=== PATIENT | male | born 1985 | race Caucasian/White ===

== ENCOUNTER 2016-08-27 23:33 | Emergency (ER) | payer OTHER ==
[~2016-08-27] VITALS: Ht 167.6 cm; Wt 77.1 kg
[~2016-08-27 23:33] MED LIST: AMOXICILLIN500 MG PO; ANAPROX DS550 MG PO; CLARITIN10 MG PO; COMPAZINE10 MG PO; PHENERGAN25 M1 PO; TRAMADOL HCL50 MG PO; ZITHROMAX Z PA250 MG PO
== END 2016-08-28 00:47 | disposition home or self-care (01) ==
LOC: ED 23:33
DX: S81.812A Laceration without foreign body, left lower leg, initial encounter (principal); Z23 Encounter for immunization; F17.200 Nicotine dependence, unspecified, uncomplicated; W45.8XXA Other foreign body or object entering through skin, initial encounter; Y93.89 Activity, other specified; Y92.9 Unspecified place or not applicable; Y99.9 Unspecified external cause status

== ENCOUNTER 2016-09-11 07:49 | Emergency (ER) | payer OTHER ==
[~2016-09-11] VITALS: Ht 167.6 cm; Wt 79.4 kg
== END 2016-09-11 08:26 | disposition home or self-care (01) ==
LOC: ED 07:49
DX: S81.812D Laceration without foreign body, left lower leg, subsequent encounter (principal); F17.200 Nicotine dependence, unspecified, uncomplicated; X58.XXXD Exposure to other specified factors, subsequent encounter

== ENCOUNTER 2017-05-23 07:37 | Emergency (ER) | payer OTHER ==
[~2017-05-23] VITALS: Ht 167.6 cm; Wt 81.6 kg
[2017-05-23] MEDS ORDERED: PENICILLIN-VK500 MG PO (08:02)
== END 2017-05-23 08:08 | disposition home or self-care (01) ==
LOC: ED 07:37
DX: K08.89 Other specified disorders of teeth and supporting structures (principal); F17.200 Nicotine dependence, unspecified, uncomplicated